=== PATIENT | female | born 1955 | race Caucasian/White ===

== ENCOUNTER → 2017-06-27 | Outpatient (CLI) | payer OTHER ==
[2017-06-27 09:42] LABS: AUTOMATED NEUTROPHIL # 6.2 TH/MM3 (1.8-7.7); BASOPHIL # 0.1 TH/MM3 (0-0.2); BASOPHIL % 0.7 % (0.0-2.0); EOSINOPHIL # 0.1 TH/MM3 (0-0.4); EOSINOPHIL % 0.8 % (0.0-4.0); HEMO FLAGS DIFF FINAL; LYMPH % 12.8 % (9.0-44.0); MEAN CELL VOLUME 91.6 FL (80.0-100.0); MEAN CORPUSCULAR HEMOGLOBIN 30.7 PG (27.0-34.0); MEAN CORPUSCULAR HGB CONC 33.5 % (32.0-36.0); MONO % 4.8 % (0.0-8.0); NEUT % 80.9 % (16.0-70.0); PLATELET COUNT 277 TH/MM3 (150-450); RED BLOOD COUNT 4.69 MIL/MM3 (4.00-5.30); RED CELL DISTRIBUTION WIDTH 14.1 % (11.6-17.2); WHITE BLOOD COUNT 7.7 TH/MM3 (4.0-11.0)
[2017-06-27 10:23] LABS: ALT (GPT) 44 U/L (10-53); ANION GAP 10 MEQ/L (5-15); AST (GOT) 34 U/L (15-37); BICARBONATE 25.5 MEQ/L (21.0-32.0); BLOOD UREA NITROGEN 23 MG/DL (7-18); CHLORIDE 104 MEQ/L (98-107); GLOMERULAR FILTRATION RATE 85 ML/MIN (>89); GLUCOSE,FASTING 82 MG/DL (74-99); POTASSIUM 3.9 MEQ/L (3.5-5.1); SODIUM (NA) 139 MEQ/L (136-145)
[2017-06-27 10:33] LABS: ALKALINE PHOSPHATASE 61 U/L (45-117); FOLLICLE STIMULATING HORMONE 1.2 mIU/mL; TOTAL BILIRUBIN ADULT 0.4 MG/DL (0.2-1.0)
[2017-07-02 23:53] LABS: PROGESTERONE 0.6 ng/mL (())
== END ==
LOC: CLAB 08:44
DX: R53.83 Other fatigue (principal); G47.00 Insomnia, unspecified; N95.1 Menopausal and female climacteric states; Z79.890 Hormone replacement therapy
CPT/HCPCS: 36415; 80053; 82306; 82627; 82670; 83001; 84144; 84402; 84403; 84410; 84443; 84481; 85025

== ENCOUNTER → 2018-03-07 | Outpatient (CLI) | payer OTHER ==
[~2018-03-07] VITALS: Ht 162.6 cm; Wt 71.0 kg
[~2018-03-07] MED LIST: BENZOCAINE 20% ORAL SPR 60 ML CAN OROPHARYNG ONE; METF1000 PO; PROT40TA PO; VITA1000 PO; VITA500S3 SL; ZANT150T2 PO; [UNRECOGNIZED DRUG - CODE]
[2018-03-07 07:55] VITALS: BP 157/83; PULSE 72; RESP 20; TEMP 98.5; O2SAT 99
== END ==
LOC: HSDC 07:15
PROVIDERS: ATTEND Hospitalist
DX: K21.9 Gastro-esophageal reflux disease without esophagitis (principal)
CPT/HCPCS: 91010

== ENCOUNTER → 2018-03-17 | Outpatient (CLI) | payer OTHER ==
[~2018-03-17] MED LIST changes: -BENZOCAINE 20% ORAL SPR 60 ML CAN OROPHARYNG ONE
[2018-03-17 07:49] LABS: AUTOMATED NEUTROPHIL # 4.4 TH/MM3 (1.8-7.7); BASOPHIL % 0.8 % (0.0-2.0); EOSINOPHIL # 0.1 TH/MM3 (0-0.4); EOSINOPHIL % 1.2 % (0.0-4.0); HEMATOCRIT 40.6 % (35.0-46.0); HEMOGLOBIN 13.8 GM/DL (11.6-15.3); LYMPH % 18.1 % (9.0-44.0); LYMPHOCYTE # 1.1 TH/MM3 (1.0-4.8); MEAN CELL VOLUME 90.6 FL (80.0-100.0); MEAN CORPUSCULAR HEMOGLOBIN 30.7 PG (27.0-34.0); MEAN CORPUSCULAR HGB CONC 33.9 % (32.0-36.0); MEAN PLATELET VOLUME 8.4 FL (7.0-11.0); MONO % 8.1 % (0.0-8.0); MONOCYTE # 0.5 TH/MM3 (0-0.9); NEUT % 71.8 % (16.0-70.0); PLATELET COUNT 289 TH/MM3 (150-450); RED BLOOD COUNT 4.48 MIL/MM3 (4.00-5.30); RED CELL DISTRIBUTION WIDTH 14.2 % (11.6-17.2); WHITE BLOOD COUNT 6.2 TH/MM3 (4.0-11.0)
[2018-03-17 08:08] LABS: ALBUMIN 3.5 GM/DL (3.4-5.0); AST (GOT) 20 U/L (15-37); BICARBONATE 26.5 MEQ/L (21.0-32.0); BLOOD UREA NITROGEN 19 MG/DL (7-18); CALCIUM 8.4 MG/DL (8.5-10.1); CHLORIDE 108 MEQ/L (98-107); CHOLESTEROL 200 MG/DL (120-200); CREATININE 0.78 MG/DL (0.50-1.00); GLOMERULAR FILTRATION RATE 75 ML/MIN (>89); GLUCOSE,FASTING 89 MG/DL (74-99); SODIUM (NA) 143 MEQ/L (136-145); TRIGLYCERIDES 83 MG/DL (42-150)
[2018-03-17 08:17] LABS: ALKALINE PHOSPHATASE 60 U/L (45-117); ALT (GPT) 29 U/L (10-53); CHOLESTEROL/ HDL RATIO 2.98 RATIO; FREE T3 2.56 PG/ML (2.18-3.98); FREE T4 1.15 NG/DL (0.76-1.46); HDL CHOLESTEROL 67.1 MG/DL (40.0-60.0); LDL CHOLESTEROL 116 MG/DL (0-99); TOTAL BILIRUBIN ADULT 0.2 MG/DL (0.2-1.0)
[2018-03-17 17:15] LABS: HEMOGLOBIN A1C 5.1 % (4.3-6.0)
[2018-03-18 17:52] LABS: DEHYDROEPIANDROSTERONE SULFATE 172 mcg/dL (12-133)
[2018-03-20 12:14] LABS: ESTRADIOL 1830 pg/mL; FREE TESTOSTERONE 10.9 ng/dL (0.06-0.87); TOTAL TESTOSTERONE 1560 ng/dL (8-60)
== END ==
LOC: CLAB 07:19
PROVIDERS: ATTEND Family Medicine
DX: G47.00 Insomnia, unspecified (principal); R53.83 Other fatigue; N95.1 Menopausal and female climacteric states; K21.9 Gastro-esophageal reflux disease without esophagitis
CPT/HCPCS: 36415; 80053; 80061; 82306; 82627; 82670; 83001; 83036; 84403; 84410; 84439; 84443; 84481; 85025

== ENCOUNTER → 2018-05-06 | Outpatient (CLI) | payer OTHER ==
[2018-05-09 00:39] LABS: ESTRADIOL <10 pg/mL; TOTAL TESTOSTERONE <7.0 ng/dL (8-60)
[2018-05-09 19:52] LABS: PROGESTERONE 0.5 ng/mL
== END ==
LOC: CLAB 09:51
DX: R53.83 Other fatigue (principal); G47.00 Insomnia, unspecified; N95.1 Menopausal and female climacteric states
CPT/HCPCS: 36415; 82670; 84144; 84403; 84410